=== PATIENT | male | born 1965 | race Two or more races ===

== ENCOUNTER 2018-08-31 05:05 | Inpatient (IN) | payer OTHER ==
[~2018-08-31] VITALS: Ht 180.3 cm; Wt 124.7 kg
[2018-08-31] MEDS ORDERED: CELECOXIB 100 MG CAPSULE ONE (05:35)
[2018-08-31] MEDS ORDERED: CEFAZOLIN SODIUM/DEXTROSE,ISO 50 ML IV ONE (05:35)
[2018-08-31] MEDS ORDERED: ACETAMINOPHEN 325 MG TABLET ONE (05:35)
[2018-08-31] MEDS ORDERED: oxyCODONE HCL SR 10MG TAB.SR.12H PO ONE (05:35)
[2018-08-31] MEDS ORDERED: KETOROLAC TROMETHAMINE INJ 30 MG/ML VIAL ONE (05:55)
[2018-08-31] MEDS ORDERED: BACITRACIN 50000 UNITS/VIAL ONE (05:56)
[2018-08-31] MEDS ORDERED: BUPIVACAINE MPF 0.5% W/EPI INJ 30 ML VIAL ONE (05:56)
[2018-08-31] MEDS ORDERED: BUPIVACAINE 0.75% DEXT-PF 2 ML AMPUL ONE (06:04)
[2018-08-31] MEDS ORDERED: MIDAZOLAM HCL 2 MG/2ML VIAL ONE (06:05)
[2018-08-31] MEDS ORDERED: FENTANYL PF 100MCG/2ML AMPUL ONE (06:05)
[2018-08-31] MEDS ORDERED: MORPHINE SULFATE/PF 10 MG/10ML (1MG/ML) AMPUL ONE (06:06)
[2018-08-31] MEDS ORDERED: TRANEXAMIC ACID 3,000 MG in SODIUM CHLORIDE IRRIG SOLUTION 70 ML IR ONE (07:30)
[2018-08-31 09:30] VITALS: BP 144/71
[2018-08-31] MEDS ORDERED: IV D5/0.45 NACL 1,000 ML IV PRN (09:30)
[2018-08-31] MEDS ORDERED: COLACE 250 MG CAPSULE PO PRN (09:30)
[2018-08-31] MEDS ORDERED: ZOFRAN 4mg/2ML IV PRN (09:30)
[2018-08-31] MEDS ORDERED: HYDROCODONE/APAP 5/325MG 1 EACH TABLET PO PRN (09:30)
[2018-08-31] MEDS ORDERED: DULCOLAX 10 MG/SUPP.RECT RC PRN (09:30)
[2018-08-31] MEDS ORDERED: TYLENOL 650 MG TABLET PO PRN (09:30)
[2018-08-31] MEDS ORDERED: SENOKOT 8.6 MG TABLET PO PRN (09:30)
--- NOTE | 2018-08-31 10:00 | NUR ---
PASSEMENTERIE WORKER NOTES ADMITTED PATIENT FROM OPERATING ROOM, REPORT GIVEN BY PAT RN IN STABLE CONDITION. DENIED ANY PAIN AT THIS TIME. NO ACUTE DISTRESS NOTED. BREATHING UNLABORED. NO SOB NOTED. LEFT KNEE WITH CLEAN AND DRY DRESSING, MD TO DO DRESSING CHANGE. IV ACCESS PATENT AND INTACT, NO REDNESS OR SWELLING NOTED. ORIENTED TO THE ROOM, AT BEDSIDE. PLACED NCA CERTIFIED CONCIERGE, SINUS RHYTHM. NEEDS ATTENDED AND ANTICIPATED.
[2018-08-31] MEDS ORDERED: MENTHOL/CETYLPYRD (CEPACOL) 1 LOZ LOZENGE MM PRN (11:00)
[2018-08-31] MEDS ORDERED: MAGNESIUM HYDROXIDE 30 ML UDC PO PRN (11:00)
[2018-08-31] MEDS ORDERED: MAG HYDROX/AL HYDROX/SIMETH 30 ML UDC PO PRN (11:00)
[2018-08-31] MEDS ORDERED: HYDROMORPHONE 1 MG/1 ML DISP.SYRIN SQ PRN (11:00)
[2018-08-31] MEDS ORDERED: diphenhydrAMINE HCL 25 MG CAPSULE PO PRN (11:00)
[2018-08-31] MEDS ORDERED: NALOXONE HCL 0.4 MG/ML AMPUL IV PRN (11:00)
[2018-08-31] MEDS ORDERED: CLONIDINE HCL 0.1 MG TABLET PO PRN (11:00)
[2018-08-31 12:30] VITALS: BP 154/70
[2018-08-31] MEDS: ANCEF 1 G in IV D5W 50 ML IV SCH ×2 (15:28→23:19)
[2018-08-31] MEDS: DOCUSATE SODIUM 100 MG CAPSULE PO SCH (16:53)
[2018-08-31] MEDS: FAMOTIDINE (20 MG) 20 MG TABLET PO SCH (16:53)
[2018-08-31 18:00] VITALS: BP 122/69
--- NOTE | 2018-08-31 19:00 | NUR ---
LOBSTERMAN NOTES PATIENT IN LYING IN BED, ALERT ORIENTED X 3. NO ACUTE DISTRESS NOTED. BREATHING UNLABORED. PATIENT REMAINS TO HAVE STABLE VITAL SIGNS. DENIED ANY PAIN AT THIS TIME. LEFT KNEE DRESSING INTACT, CLEAN AND DRY. IV ACCESS PATENT AND INTACT, NO REDNESS OR SWELLING NOTED. PHYSICAL THERAPY EVALUATION DONE. PHYSICAL THERAPY PLACED LEFT LEG ON CPM MACHINE FOR 4 HOURS, PATIENT TOLERATED WELL. DUE MEDICAITONS GIVEN, NO ASE NOTED. NEEDS ATTENDED AND ANTICIPATED. KEPT CLEAN, DRY AND COMFORTABLE. ENDORSED TO NIGHT NURSE FOR CONTINUITY OF CARE.
--- NOTE | 2018-08-31 19:50 | NUR ---
RECREATION TEACHER NOTE: PATIENT RESTING IN BED, NO ACUTE DISTRESS NOTED. BREATHING EVEN AND UNLABORED, NO SOB NOTED. IV TO RIGHT WRIST INFUSING D5 1/2 NS AT 125 ML/HR. CHEUNG CATHETER IN PLACE, EMPTY AT THIS TIME. DRESSING IN PLACE TO LEFT KNEE, NO BLEEDING NOTED. INCENTIVE SPIROMETER AT BEDSIDE, INSTRUCTED TO USE AT LEAST EVERY HOUR WHILE AWAKE. BED LOCKED AND IN LOWEST POSITION, CALL LIGHT IN REACH. WILL CONTINUE TO MONITOR.
[2018-08-31 20:00] VITALS: BP 122/67
[2018-08-31] MEDS ORDERED: AMBIEN 5 MG TABLET PO PRN (22:00)
[2018-08-31] MEDS ORDERED: DEXTROSE 50%-WATER 50 ML DISP.SYRIN IV PRN (22:30)
[2018-08-31] MEDS: HYDROCODONE/APAP 10/325MG 1 EA TABLET PO PRN (23:14)
[2018-08-31] MEDS: BLOOD SUGAR DIAGNOSTIC 1 EACH STRIP IN SCH (23:19)
--- NOTE | 2018-08-31 23:25 | NUR ---
ADOPTION AGENT NOTE: PATIENT COMPLAINS OF PAIN TO LEFT KNEE 02/07, NORCO 10/325MG 1 TAB ORAL GIVEN PER MD ORDER. PATIENT BLOOD SUGAR LEVEL 84MG/DL, NO INSULIN NEEDED PER SLIDING SCALE. NO S/S OF HYPER/HYPOGLYCEMIA NOTED, SNACKS PROVIDED. WILL CONTINUE TO MONITOR.
[2018-09-01] VITALS (7 sets, daily range): BP systolic 106–130; BP diastolic 55–74
[2018-09-01] MEDS: HYDROCODONE/APAP 10/325MG 1 EA TABLET PO PRN ×3 (06:00→18:41)
[2018-09-01 06:25] LABS: MEAN CORPUSCULAR HGB CONC 33 g/dl (31.0-36.0)
--- NOTE | 2018-09-01 06:30 | NUR ---
COMIC BOOK WRITER NOTE: PATIENT RESTING IN BED, NO ACUTE DISTRESS NOTED. BREATHING EVEN AND UNLABORED, NO SOB NOTED. IV TO RIGHT WRIST. CHEUNG CATHETER IN PLACE. DRESSING IN PLACE TO LEFT KNEE, NO BLEEDING NOTED. PATIENT COMPLAINS OF PAIN TO LEFT KNEE 02/07, NORCO 10 1 TAB ORAL GIVEN PER MD ORDER. PATIENT BLOOD SUGAR LEVEL 106MG/DL, NO INSULIN NEEDED PER SLIDING SCALE. NO S/S HYPER/HYPOGLYCEMIA NOTED. BED LOCKED AND IN LOWEST POSITION, CALL LIGHT IN REACH. WILL ENDORSE TO DAY NURSE TO CONTINUE WITH PLAN OF CARE.
[2018-09-01 06:32] LABS: BASOPHILS # (AUTO) 0.1 /CMM (0.0-0.2); LYMPHOCYTES # (AUTO) 3.1 /CMM (0.8-4.8); MONOCYTES # (AUTO) 0.8 /CMM (0.1-1.30); NEUTROPHILS # (AUTO) 7.1 /CMM (1.8-8.9)
[2018-09-01] MEDS: BLOOD SUGAR DIAGNOSTIC 1 EACH STRIP IN SCH ×4 (06:36→22:44)
[2018-09-01 06:40] LABS: HEMATOCRIT 37 % (39-51); HEMOGLOBIN 12.2 g/dL (13.5-17.5); MEAN CORPUSCULAR VOLUME 98 fL (80-96); RED BLOOD CELL COUNT(AUTO) 3.81 MIL/uL (4.5-6.0); WHITE BLOOD COUNT (AUTO) 11.2 K/uL (4.3-11.0)
[2018-09-01 06:41] LABS: LYMPHOCYTES % (AUTO) 27.7 % (20.0-44.0); MONOCYTES % (AUTO) 7.1 % (2.0-12.0); NEUTROPHILS % (AUTO) 63.8 % (43.0-81.0); PLATELET COUNT (AUTO) 205 /CMM (150-450); RDW COEFFICIENT OF VARIATION 13.7 (11.5-15.0)
[2018-09-01 06:42] LABS: BASOPHILS % (AUTO) 0.5 % (0.0-2.0); EOSINOPHILS % (AUTO) 0.9 % (0.0-6.0)
[2018-09-01 06:43] LABS: CALCIUM, SERUM 8.2 mg/dL (8.5-10.1); CREATININE 0.8 mg/dL (0.6-1.3); MAGNESIUM 1.6 mg/dL (1.8-2.4); PHOSPHORUS 3.1 mg/dL (2.5-4.9); POTASSIUM 3.9 mmol/L (3.5-5.1)
--- NOTE | 2018-09-01 07:00 | NUR ---
RELOCATION COORDINATOR OPENING NOTE RECEIVED PT IN BED, ALERT AND ORIENTED X4. DENIES N/V, CHEST PAIN, SOB AT THIS TIME. BREATHING IS EVEN AND UNLABORED ON ROOM AIR. ON DYE AUTOMATION OPERATOR, SINUS BRADYCARDIA, 48. R HAND #18G IV IS SALINE LOCKED, CLEAN, DRY AND INTACT, CHEUNG CATHETER NOTED TO BE DRAINING CLEAR YELLOW URINE. L KNEE DRESSING IS CLEAN, DRY AND INTACT, PEDAL PULSES STRONG AND EQUAL BILATERALLY. ALL NEEDS ATTENDED TO. BED IS LOCKED AND IN LOWEST POSITION, SIDE RAILS UP X2, CALL LIGHT IS WITHIN REACH. FAMILY AT THE BEDSIDE.
[2018-09-01] MEDS: FAMOTIDINE (20 MG) 20 MG TABLET PO SCH ×2 (08:42→16:53)
[2018-09-01] MEDS: DOCUSATE SODIUM 100 MG CAPSULE PO SCH ×2 (08:42→16:53)
[2018-09-01] MEDS: TAMSULOSIN 0.4 MG CAP.SR.24H PO SCH (08:42)
[2018-09-01] MEDS: ASPIRIN 325 MG TABLET PO SCH ×2 (08:42→16:53)
[2018-09-01] MEDS: MORPHINE SULFATE INJ 4 MG/ML DISP.SYRIN IM PRN ×2 (08:47→17:02)
--- NOTE | 2018-09-01 09:03 | NUR ---
BLISS PRESS OPERATOR D/C CHEUNG D/C CHEUNG CATHETER ORDERED, TIP IN TACT. VOIDING TRIAL INITIATED, URINAL PLACED AT THE BEDSIDE.
--- NOTE | 2018-09-01 09:15 | NUR ---
BELT SEWER PT UP W/ PHYSICAL THERAPY PT UP W/ PHYSICAL THERAPY. PT ABLE TO AMBULATE WITH WALKER DOWN [place]. PT PLACED BACK IN BED, RATES CURRENT PAIN LEVEL 2/10 AND TOLERABLE.
[2018-09-01] MEDS: Magnesium 1GM/D5W 100ML PREMIX 100 ML IV SCH ×2 (11:48→12:58)
[2018-09-01] MEDS: INSULIN REGULAR, HUMAN 100 UNIT/ML 3 ML VIAL SQ PRN (11:50)
--- NOTE | 2018-09-01 12:00 | NUR ---
MS PT VOIDED PT VOIDED 200ML OF CLEAR, YELLOW URINE.
--- NOTE | 2018-09-01 18:00 | NUR ---
MS RN CLOSING NOTE PT IN BED, ALERT AND ORIENTED X4, ABLE TO MAKE NEEDS KNOWN. DENIES N/V, CHEST PAIN, SOB AT THIS TIME. BREATHING IS EVEN AND UNLABORED ON ROOM AIR. NEUROVASCULAR STATUS IS INTACT. R HAND #18 G IV IS CLEAN, DRY AND INTACT WITHOUT REDNESS OR SWELLING. PT RATES PAIN 2/10 AT THE LEFT KNEE AND TOLERABLE AT THIS TIME. LEFT KNEE DRESSING IS CLEAN, DRY AND INTACT. FIRST DRESSING CHANGE TO BE DONE BY MD TOMORROW (09/02/18). PT TOLERATED APPROXIMATELY 3 HOURS OF CPM TODAY AND AMBULATED WITH PHYSICAL THERAPY X2. IS AT THE BEDSIDE. BED IS LOCKED AND IN LOWEST POSITION, SIDE RAILS UP X2, CALL LIGHT IS WITHIN REACH. WILL ENDORSE TO JAVA CORE DEVELOPER RN FOR CONTINUITY OF CAR
--- NOTE | 2018-09-01 19:30 | NUR ---
MS RN OPENING NOTE RECEIVED PT IN BED RESTING, ALERT AND ORIENTED X4. DENIES N/V, NO C/O CHEST PAIN, NO SOB AT THIS TIME. BREATHING IS EVEN AND UNLABORED ON RA. R HAND #18G IV IS SALINE LOCKED, PATENT & INTACT. CHEUNG CATH WAS REMOVED BY AM RN, PT VOIDED FINE AFTER CHEUNG REMOVAL. L KNEE DRESSING IS CLEAN, DRY AND INTACT, PEDAL PULSES STRONG AND EQUAL BILATERALLY. DRESSING TO BE CHANGED BY MD TOMORROW, PER REPORT. INSTRUCTED PT TO USE INCENTIVE SPIROMETER, VERBALIZED UNDERSTANDING. FWB LEFT EXTREMITY TOLERATED. BRP WITH ASSIST. BED IS LOCKED AND IN LOWEST POSITION, SIDE RAILS UP X2, CALL LIGHT IS WITHIN REACH. AT THE BEDSIDE. WILL MONITOR CLOSELY.
--- NOTE | 2018-09-02 02:55 | NUR ---
MS RN NOTE PT NOTED TO BE SLEEPING COMFORTABLY AT THIS TIME. NO C/O PAIN TO LEFT KNEE VERBALIZED SO FAR. WILL CONTINUE TO MONITOR.
--- NOTE | 2018-09-02 06:32 | NUR ---
MS RN CLOSING NOTE PT SLEPT WELL AT NIGHT, STABLE, ALERT AND ORIENTED X4. DENIES N/V, BREATHING IS EVEN AND UNLABORED ON RA. R HAND #18G IV IS SALINE LOCKED, PATENT & INTACT. L KNEE DRESSING IS CLEAN, DRY AND INTACT, PEDAL PULSES STRONG AND EQUAL BILATERALLY. INSTRUCTED PT TO USE INCENTIVE SPIROMETER, VERBALIZED UNDERSTANDING. FWB LEFT EXTREMITY TOLERATED. BRP WITH ASSIST. BED IS LOCKED AND IN LOWEST POSITION, SIDE RAILS UP X2, CALL LIGHT IS WITHIN REACH. AT THE BEDSIDE. WILL ENDORSE TO AM RN.
--- NOTE | 2018-09-02 07:15 | NUR ---
MS RN OPENING NOTE RECEIVED PT IN BED, ALERT AND ORIENTED X4, AT THE BEDSIDE. DENIES N/V, CHEST PAIN, SOB AT THIS TIME. RATES PAIN 1/10 IN THE LEFT KNEE AND TOLERABLE. NEUROVASCULAR STATUS IS INTACT. L KNEE DRESSING IS CLEAN, DRY AND INTACT, FIRST DRESSING CHANGE TO BE DONE BY MD TODAY (09/02). R HAND #18G IV IS SALINE LOCKED, CLEAN, DRY AND INTACT. ALL NEEDS ATTENDED TO. BED IS LOCKED AND IN LOWEST POSITION, SIDE RAILS UP X2, CALL LIGHT IS WITHIN REACH.
[2018-09-02] MEDS: BLOOD SUGAR DIAGNOSTIC 1 EACH STRIP IN SCH ×2 (07:36→12:02)
[2018-09-02 08:00] VITALS: BP 127/68
[2018-09-02] MEDS: TAMSULOSIN 0.4 MG CAP.SR.24H PO SCH (08:14)
[2018-09-02] MEDS: ASPIRIN 325 MG TABLET PO SCH (08:14)
[2018-09-02] MEDS: DOCUSATE SODIUM 100 MG CAPSULE PO SCH (08:14)
[2018-09-02] MEDS: FAMOTIDINE (20 MG) 20 MG TABLET PO SCH (08:14)
--- NOTE | 2018-09-02 09:00 | NUR ---
MS RN PT UP WITH PHYSICAL THERAPY PT UP WITH PHYSICAL THERAPY. ABLE TO AMBULATE DOWN [place] WITH WALKER AND REPORTS PAIN 2/10.
[2018-09-02] MEDS ORDERED: ACET325T53 PO (09:49)
[2018-09-02] MEDS: INSULIN REGULAR, HUMAN 100 UNIT/ML 3 ML VIAL SQ PRN (12:19)
[2018-09-02] MEDS: HYDROCODONE/APAP 10/325MG 1 EA TABLET PO PRN (14:01)
--- NOTE | 2018-09-02 14:15 | NUR ---
MS RN PT DISCHARGED HOME PT DISCHARGED HOME VIA PRIVATE CAR AND ACCOMPANIED BY [facility]. VS WNL, PT DENIES N/V, CHEST PAIN, SOB. BREATHING IS EVEN AND UNLABORED ON ROOM AIR. DRESSING CHANGE DONE BY TODAY (09/02). PT WILL FOLLOW UP WITH DR. FERRER ON 09/16. R HAND PERIPHERAL IV REMOVED WITH CATHETER TIP INTACT, NO SWELLING OR REDNESS NOTED. DRESSING IS CLEAN, DRY AND INTACT, AND KNEE IMMOBILIZER IN PLACE. NEUROVASCULAR STATUS IS INTACT. DISCHARGE PAPERWORK AND EDUCATION PROVIDED PER PROTOCOL. PT AND INSTRUCTED TO CALL 911 OR GO TO THE NEAREST ER FOR ANY SOB, CHEST PAIN, OR TEMPERATURE ABOVE 101. THAT IS NOT RELIEVED WITH TYLENOL. ALL BELONGINGS ACCOUNTED FOR AND BELONGINGS LIST SIGNED BY PT AND PLACED IN CHART. ACCOMPANIED PT DOWNSTAIRS TO CAR VIA WHEELCHAIR.
== END 2018-09-02 14:10 | disposition home health service (06) | DRG 470 ==
LOC: DS 05:05 → MED 10:15 → TELE 12:34 → MED 09-01 11:50
PROVIDERS: ADMIT Specialist; ATTEND Specialist
PROC: 0SRD0L9 Replacement of Left Knee Joint with Medial Unicondylar Synthetic Substitute, Cemented, Open Approach (ICD-10-PCS; principal; 2018-08-31 06:30)
DX: M17.12 Unilateral primary osteoarthritis, left knee (principal); K21.9 Gastro-esophageal reflux disease without esophagitis; I10 Essential (primary) hypertension; E78.5 Hyperlipidemia, unspecified; E11.9 Type 2 diabetes mellitus without complications; E66.01 Morbid (severe) obesity due to excess calories; Z68.38 Body mass index [BMI] 38.0-38.9, adult; M94.262 Chondromalacia, left knee
CPT/HCPCS: 36415; 80048-TC; 82962-TC; 83735-TC; 84100-TC; 85025-TC; 87081-TC; 94799-TC; 97110-TC; 97116-TC; 97530-TC; 97760-TC; A4217; J0690; J1815; J1885; J2250; J2270; J2274; J3010; J3475; J3490; J7050; J7060; Q2036